=== PATIENT | female | born 1950 | race Caucasian/White ===

== ENCOUNTER 2020-02-12 12:35 | Inpatient (IN) ==
[2020-02-12] MEDS ORDERED: DEXAMETHASONE 4 MG/1 ML VIAL IV STA ×2 (13:38→13:41)
[2020-02-12] MEDS ORDERED: FAMOTIDINE 20 MG/2 ML VIAL IV STA ×2 (13:38→13:41)
[2020-02-12] MEDS ORDERED: CETIRIZINE 10 MG TABLET PO STA ×2 (13:38→13:41)
[2020-02-12] MEDS ORDERED: SODIUM CHLORIDE 0.9% 1,000 ML IV STA (13:50)
[2020-02-12 14:26] LABS: Hematocrit 40.4 VOL% (35.7-47.0); Hemoglobin 13.3 GM/DL (12.0-16.0); Immature Granulocytes % 0.2 %; Immature Granulocytes Absolute 0.01 #; Lymphocytes # 0.6 10*3/uL (1.4-4.0); Lymphocytes % 14.5 % (21.3-54.2); Mean Corpuscular HGB Conc 32.9 GM/DL (32-36); Mean Corpuscular Volume 87.6 FL (87-102); Mean Platelet Volume 8.8 FL (9.6-12.0); Monocytes % 12.9 % (1.7-12.7); Neutrophils % 72.4 % (38.7-73.9); Platelet Count 223 T/CUMM (130-400); Red Blood Count 4.61 MC/CUMM (3.8-5.5); Red Cell Distribution Width 13.5 % (9.3-17.3); White Blood Count 4.3 T/CUMM (4-12)
[2020-02-12 14:36] LABS: Apearance,Urine CLEAR (Clear); Bilirubin,Urine Negative (Negative); Blood, Urine Negative (Negative); Glucose,Urine (UA) 50 mg/dL (Negative); Hyaline Casts,Urine 31 /LPF (0-3); Ketones,Urine Negative (Negative); Mucus,Urine Few /LPF (Occasional); Nitrite,Urine Negative (Negative); Protein,Urine 30 MG/DL; RBC,Urine 1 /HPF (0-4); Squamous Epithelial Cell,Urine Occasional /HPF (0-10); Urine Color Yellow (Yellow); Urine Specific Gravity 1.016 (1.001-1.035); Urine Urobilinogen < 2.0 EU/DL (0.2-1.0); WBC,Urine 3 /HPF (0-6)
[2020-02-12 14:46] LABS: Albumin 2.9 G/DL (3.4-5.0); Bilirubin,Total 0.6 MG/DL (0.2-1.0); Calcium 8.3 MG/DL (8.5-10.1); Ferritin 87.3 ng/ml (8-252); Osmolality,Calculated 273.8 MOS/KG (273-304)
[2020-02-12] MEDS ORDERED: ONDANSETRON 4 MG/2 ML VIAL IV PRN (15:06)
[2020-02-12] MEDS ORDERED: DEXTROSE 50% 25 GM/50 ML VIAL IV PRN (15:06)
[2020-02-12] MEDS ORDERED: GLUCAGON 1 MG VIAL IM PRN (15:06)
[2020-02-12] MEDS ORDERED: AZITHROMYCIN INJ 500 MG in SODIUM CHLORIDE 0.9% 250 ML IV SCH (17:00)
[2020-02-12] MEDS: cefTRIAXone 1,000 MG in SYRINGE 1 EACH IV SCH (17:32)
[2020-02-12] MEDS: SODIUM CHLORIDE 0.9% 1,000 ML IV SCH ×2 (17:34→23:37)
[2020-02-12] MEDS: POTASSIUM CHLORIDE 20 MEQ TABLET PO PRN (17:50)
[2020-02-12] MEDS: PANTOPRAZOLE 40 MG TABLET PO SCH (20:20)
[2020-02-12] MEDS: ACETAMINOPHEN 325 MG TABLET PO PRN (20:20)
[2020-02-13] MEDS: SODIUM CHLORIDE 0.9% 1,000 ML IV SCH ×3 (02:00→16:42)
[2020-02-13 05:38] LABS: Hematocrit 34.5 VOL% (35.7-47.0); Hemoglobin 10.9 GM/DL (12.0-16.0); Immature Granulocytes % 0.4 %; Immature Granulocytes Absolute 0.02 #; Lymphocytes # 0.7 10*3/uL (1.4-4.0); Lymphocytes % 16.1 % (21.3-54.2); Mean Corpuscular HGB Conc 31.6 GM/DL (32-36); Mean Corpuscular Volume 90.8 FL (87-102); Mean Platelet Volume 8.9 FL (9.6-12.0); Monocytes % 10.5 % (1.7-12.7); Platelet Count 187 T/CUMM (130-400); Red Cell Distribution Width 13.4 % (9.3-17.3); White Blood Count 4.5 T/CUMM (4-12)
[2020-02-13 06:12] LABS: Ferritin 79.8 ng/ml (8-252)
[2020-02-13 06:14] LABS: Calcium 7.7 MG/DL (8.5-10.1)
[2020-02-13] MEDS: AZITHROMYCIN 250 MG TABLET PO SCH (08:48)
[2020-02-13] MEDS: cefTRIAXone 1,000 MG in SYRINGE 1 EACH IV SCH (08:49)
[2020-02-13] MEDS: DEXAMETHASONE 4 MG/1 ML VIAL IV SCH (08:49)
[2020-02-13] MEDS: PANTOPRAZOLE 40 MG TABLET PO SCH ×2 (08:49→20:30)
[2020-02-13] MEDS ORDERED: PANTOPRAZOLE 40 MG TABLET PO SCH (09:00)
[2020-02-13] MEDS: ACETAMINOPHEN 325 MG TABLET PO PRN (18:09)
[2020-02-13] MEDS: QUEtiapine 100 MG TABLET PO SCH (20:30)
[2020-02-13] MEDS: ARIPiprazole 5 MG TABLET PO SCH (20:30)
[2020-02-14] MEDS: SODIUM CHLORIDE 0.9% 1,000 ML IV SCH ×3 (02:49→10:08)
[2020-02-14 03:56] LABS: Hematocrit 32.6 VOL% (35.7-47.0); Hemoglobin 10.3 GM/DL (12.0-16.0); Immature Granulocytes % 0.4 %; Immature Granulocytes Absolute 0.03 #; Lymphocytes # 0.9 10*3/uL (1.4-4.0); Lymphocytes % 12.3 % (21.3-54.2); Mean Corpuscular HGB Conc 31.6 GM/DL (32-36); Mean Corpuscular Volume 92.1 FL (87-102); Monocytes % 7.1 % (1.7-12.7); Neutrophils % 80.2 % (38.7-73.9); Platelet Count 211 T/CUMM (130-400); Red Blood Count 3.54 MC/CUMM (3.8-5.5); Red Cell Distribution Width 13.9 % (9.3-17.3); White Blood Count 7.6 T/CUMM (4-12)
[2020-02-14 04:22] LABS: Ferritin 57.7 ng/ml (8-252)
[2020-02-14 06:36] LABS: Calcium 7.9 MG/DL (8.5-10.1); Osmolality,Calculated 289.6 MOS/KG (273-304)
[2020-02-14] MEDS: DEXAMETHASONE 4 MG/1 ML VIAL IV SCH (08:37)
[2020-02-14] MEDS: DULoxetine 30 MG CAPSULE PO SCH (08:37)
[2020-02-14] MEDS: ATORVASTATIN 20 MG TABLET PO SCH (08:37)
[2020-02-14] MEDS: AZITHROMYCIN 250 MG TABLET PO SCH (08:37)
[2020-02-14] MEDS: PANTOPRAZOLE 40 MG TABLET PO SCH ×2 (08:37→20:00)
[2020-02-14] MEDS: cefTRIAXone 1,000 MG in SYRINGE 1 EACH IV SCH (08:40)
[2020-02-14] MEDS: ASPIRIN EC 81 MG TABLET PO SCH (08:49)
[2020-02-14] MEDS: ACETAMINOPHEN 325 MG TABLET PO PRN (19:30)
[2020-02-14] MEDS: ARIPiprazole 5 MG TABLET PO SCH (20:00)
[2020-02-14] MEDS: QUEtiapine 100 MG TABLET PO SCH (20:00)
[2020-02-15 05:58] LABS: Hematocrit 33.5 VOL% (35.7-47.0); Hemoglobin 10.6 GM/DL (12.0-16.0); Immature Granulocytes % 0.8 %; Immature Granulocytes Absolute 0.07 #; Lymphocytes # 0.9 10*3/uL (1.4-4.0); Lymphocytes % 11.1 % (21.3-54.2); Mean Corpuscular HGB Conc 31.6 GM/DL (32-36); Mean Corpuscular Volume 91.5 FL (87-102); Mean Platelet Volume 8.9 FL (9.6-12.0); Monocytes % 5.6 % (1.7-12.7); Neutrophils % 82.5 % (38.7-73.9); Platelet Count 218 T/CUMM (130-400); Red Blood Count 3.66 MC/CUMM (3.8-5.5); Red Cell Distribution Width 13.9 % (9.3-17.3); White Blood Count 8.3 T/CUMM (4-12)
[2020-02-15 06:21] LABS: Calcium 7.9 MG/DL (8.5-10.1); Osmolality,Calculated 286.7 MOS/KG (273-304)
[2020-02-15 07:08] LABS: Ferritin 49.7 ng/ml (8-252)
[2020-02-15] MEDS: DEXAMETHASONE 4 MG/1 ML VIAL IV SCH (08:45)
[2020-02-15] MEDS: DULoxetine 30 MG CAPSULE PO SCH (08:45)
[2020-02-15] MEDS: PANTOPRAZOLE 40 MG TABLET PO SCH ×2 (08:45→20:04)
[2020-02-15] MEDS: AZITHROMYCIN 250 MG TABLET PO SCH (08:45)
[2020-02-15] MEDS: ATORVASTATIN 20 MG TABLET PO SCH (08:45)
[2020-02-15] MEDS: cefTRIAXone 1,000 MG in SYRINGE 1 EACH IV SCH (08:48)
[2020-02-15] MEDS: ASPIRIN EC 81 MG TABLET PO SCH (09:03)
[2020-02-15] MEDS: ARIPiprazole 5 MG TABLET PO SCH (20:05)
[2020-02-15] MEDS: ACETAMINOPHEN 325 MG TABLET PO PRN (20:05)
[2020-02-15] MEDS: QUEtiapine 100 MG TABLET PO SCH (20:05)
[2020-02-15] MEDS: POTASSIUM CHLORIDE 20 MEQ TABLET PO PRN ×2 (20:06→20:30)
[2020-02-16 05:37] LABS: Basophils % 0.1 % (0.0-0.8); Hemoglobin 10.5 GM/DL (12.0-16.0); Immature Granulocytes % 0.6 %; Immature Granulocytes Absolute 0.06 #; Lymphocytes # 0.8 10*3/uL (1.4-4.0); Lymphocytes % 8.6 % (21.3-54.2); Mean Corpuscular HGB Conc 32.8 GM/DL (32-36); Mean Corpuscular Volume 88.6 FL (87-102); Mean Platelet Volume 9.1 FL (9.6-12.0); Monocytes % 6.2 % (1.7-12.7); Neutrophils % 84.5 % (38.7-73.9); Platelet Count 206 T/CUMM (130-400); Red Blood Count 3.61 MC/CUMM (3.8-5.5); Red Cell Distribution Width 13.6 % (9.3-17.3); White Blood Count 9.3 T/CUMM (4-12)
[2020-02-16] MEDS: ASPIRIN EC 81 MG TABLET PO SCH (08:44)
[2020-02-16] MEDS: DEXAMETHASONE 4 MG/1 ML VIAL IV SCH (08:54)
[2020-02-16] MEDS: cefTRIAXone 1,000 MG in SYRINGE 1 EACH IV SCH (08:56)
[2020-02-16] MEDS: PANTOPRAZOLE 40 MG TABLET PO SCH ×2 (09:00→20:00)
[2020-02-16] MEDS: AZITHROMYCIN 250 MG TABLET PO SCH (09:00)
[2020-02-16] MEDS: DULoxetine 30 MG CAPSULE PO SCH (09:00)
[2020-02-16] MEDS: ATORVASTATIN 20 MG TABLET PO SCH (09:00)
[2020-02-16] MEDS: ARIPiprazole 5 MG TABLET PO SCH (20:00)
[2020-02-16] MEDS: QUEtiapine 100 MG TABLET PO SCH (20:00)
[2020-02-16] MEDS: ACETAMINOPHEN 325 MG TABLET PO PRN (20:00)
[2020-02-17 04:34] LABS: Basophils % 0.1 % (0.0-0.8); Hematocrit 32.7 VOL% (35.7-47.0); Hemoglobin 10.9 GM/DL (12.0-16.0); Immature Granulocytes % 0.7 %; Immature Granulocytes Absolute 0.07 #; Lymphocytes # 0.9 10*3/uL (1.4-4.0); Lymphocytes % 8.8 % (21.3-54.2); Mean Corpuscular HGB Conc 33.3 GM/DL (32-36); Mean Corpuscular Volume 87.9 FL (87-102); Mean Platelet Volume 9.3 FL (9.6-12.0); Monocytes % 5.8 % (1.7-12.7); Neutrophils % 84.6 % (38.7-73.9); Platelet Count 194 T/CUMM (130-400); Red Blood Count 3.72 MC/CUMM (3.8-5.5); Red Cell Distribution Width 13.7 % (9.3-17.3); White Blood Count 10.1 T/CUMM (4-12)
[2020-02-17 08:36] VITALS: BP 147/65
[2020-02-17] MEDS ORDERED: LIDOCAINE 5% PATCH TRANSDERM SCH (09:00)
[2020-02-17] MEDS ORDERED: MAGNESIUM SULF RIDER 2 GM in PREMIX 1 EACH IV ONE (09:00)
[2020-02-17] MEDS: DEXAMETHASONE 4 MG/1 ML VIAL IV SCH (09:24)
[2020-02-17] MEDS: DULoxetine 30 MG CAPSULE PO SCH (09:25)
[2020-02-17] MEDS: PANTOPRAZOLE 40 MG TABLET PO SCH (09:25)
[2020-02-17] MEDS: cefTRIAXone 1,000 MG in SYRINGE 1 EACH IV SCH (09:25)
[2020-02-17] MEDS: ASPIRIN EC 81 MG TABLET PO SCH (09:25)
[2020-02-17] MEDS: ATORVASTATIN 20 MG TABLET PO SCH (09:25)
[2020-02-17] MEDS: POTASSIUM CHLORIDE 20 MEQ TABLET PO PRN (09:25)
== END 2020-02-17 11:55 | disposition home health service (06) | DRG 177 ==
LOC: N.ED 12:35 → N.EDINP 15:05 → SUATTDRO 15:05 → N.2E 15:41
PROVIDERS: ADMIT Internal Medicine; ATTEND Hospitalist